=== PATIENT | male | born 1945 ===

== ENCOUNTER 2018-06-05 10:27 | Outpatient (CLI) | payer MEDICARE | END 2018-06-05 10:28 | disposition home or self-care (01) | LOC: C.LAB 10:27 | DX: E78.5 Hyperlipidemia, unspecified (principal); Z13.9 Encounter for screening, unspecified; Z12.11 Encounter for screening for malignant neoplasm of colon ==

== ENCOUNTER 2018-06-06 09:49 | Outpatient (CLI) | payer MEDICARE | END 2018-06-06 09:50 | disposition home or self-care (01) | LOC: C.LAB 09:49 | DX: Z12.11 Encounter for screening for malignant neoplasm of colon (principal) ==